=== PATIENT | female | born 1990 | race Caucasian/White ===

== ENCOUNTER 2017-06-30 01:47 | Emergency (ER) | payer SELFPAY ==
--- NOTE | 2017-06-30 01:51 | EDPHY ---
H & P HPI/ROS: HPI CHIEF COMPLAINT: Nausea, vomiting, abdominal pain, anxiety attack HISTORY OF PRESENT ILLNESS: This patient is a 26-year-old female, she has significant past medical history for anxiety and panic attacks, asthma, PTSD and chronic abdominal pain. She presents emergency room at 2 o'clock in the morning with nausea vomiting diffuse abdominal cramping, hyperventilation and feeling very anxious. She states for the past 3 year she has had chronic abdominal pain it has been associated with her anxiety. She states tonight she has been unable to hold anything down her anxiety is increasing. She states for the past 24 hours she has been vomiting without able to hold down p.o.. Past Medical History: Acute anxiety, panic attack, asthma, PTSD, chronic abdominal pain, thyroid disease Past Surgical History: Cholecystectomy Social History: Denies daily use of drugs alcohol tobacco products. Family History: Noncontributory ROS REVIEW OF SYSTEMS: A comprehensive 10 point review of systems is otherwise negative aside from elements mentioned in the history of present illness. Exam Constitutional anxious, tearful, triage nursing summary reviewed, vital signs reviewed, awake/alert. Eyes normal conjunctivae and sclera, EOMI, PERRLA. HENT normal inspection, atraumatic, moist mucus membranes, no epistaxis, neck supple/ no meningismus, no raccoon eyes. Respiratory clear to auscultation bilaterally, normal breath sounds, no respiratory distress, no wheezing. Cardiovascular rate normal, regular rhythm, no murmur, no edema, distal pulses normal. Gastrointestinal soft, non-tender, no rebound, no guarding, normal bowel sounds, no distension, no pulsatile mass. Genitourinary no CVA tenderness. Musculoskeletal no midline vertebral tenderness, full range of motion, no calf swelling, no tenderness of extremities, no meningismus, good pulses, neurovascularly intact. Skin pink, warm, & dry, no rash, skin atraumatic. Neurologic awake, alert and oriented x 3, AAOx3, moves all 4 extremities equally, motor intact, sensory intact, CN II-XII intact, normal cerebellar, normal vision, normal speech. Psychiatric normal mood/affect. Heme/Lymph/Immune no lymphadenopathy. Differential Diagnosis: Includes but is not limited to in a particular order acute anxiety, panic attack, electrolyte disturbance, dehydration, urinary tract infection, abdominal migraine, bowel obstruction, perforated bowel Medical Decision Making: Plan for this patient IV establishment, IV fluid bolus , IV Zofran for nausea IV Ativan for acute anxiety check abdominal blood work in KUB. Reexamine. Re-evaluation: 0326AM: Re-examination at this time this patient is resting comfortably no acute distress. Abdomen is soft nontender. She feels better after IV fluids Zofran and Ativan. Blood work has been reviewed is unremarkable. KUB does not show abnormal bowel gas pattern or free air. Gallbladder clips present. IUD present. Stool in the rectosigmoid colon. 0329AM: Patient like to go home. Re-examination abdomen is soft nontender. She states she feels better after IV Zofran fluids and Ativan. She is requesting nausea medicine for home as well as short dose of Ativan. I will provide her with this. She understands return emergency room if she develops worsening abdominal pain fever vomiting. She p.o. challenge successfully here. 0451AM: Patient was also given a GI cocktail this made her feel much better. I have added a prescription for Zantac. She also received 1 mg p.o. Ativan here. She does feel better. Return precautions given. Source: Patient - Medical/Surgical History Hx Asthma: Yes Hx Chronic Respiratory Disease: No Hx Diabetes: No Hx Cardiac Disease: No Hx Renal Disease: No Hx Cirrhosis: No Hx Alcoholism: No Hx HIV/AIDS: No Hx Splenectomy or Spleen Trauma: No Other PMH: PTSD, asthma , pcos, Anxiety depression - Social History Smoking Status: Never smoked Constitutional: Initial Vital Signs Temperature (C) 36.8 C 06/30/17 01:52 Heart Rate 97 06/30/17 01:52 Respiratory Rate 16 06/30/17 01:52 Blood Pressure 132/101 H 06/30/17 01:52 O2 Sat (%) 98 06/30/17 01:52 O2 Delivery Mode Room Air Allergies/Adverse Reactions: acetaminophen [From Percocet] Allergy (Verified 05/27/16 17:25) amoxicillin [From Augmentin] Allergy (Verified 06/30/17 01:52) clavulanic acid [From Augmentin] Allergy (Verified 06/30/17 01:52) fentanyl Allergy (Verified 05/27/16 17:25) fluticasone [From Flovent Diskus] Allergy (Verified 06/30/17 01:52) oxycodone HCl [From Percocet] Allergy (Verified 05/27/16 17:25) promethazine HCl [From Phenergan] Allergy (Verified 05/27/16 17:25) salmeterol [From Advair Diskus] Allergy (Verified 06/30/17 01:52) tramadol Allergy (Verified 05/27/16 17:25) Home Medications: Medication Instructions Recorded Albuterol 06/30/17 LORazepam [Ativan] 1 mg PO DAILY #4 tablet 06/30/17 Ondansetron HCl [Zofran] 4 mg PO Q4-6PRN PRN #10 tablet 06/30/17 Ranitidine HCl [Zantac] 150 mg PO DAILY #30 tablet 06/30/17 Medical Decision Making - Data Points Laboratory Results: Laboratory Results 06/30/17 01:57 06/30/17 01:57 06/30/17 06/30/17 06/30/17 01:57 01:57 01:57 WBC 8.63 10^3/uL 10^3/uL (3.80-9.50) RBC 4.82 10^6/uL 10^6/uL (4.18-5.33) Hgb 15.5 g/dL g/dL (12.6-16.3) Hct 44.0 % % (38.0-47.0) MCV 91.3 fL fL (81.5-99.8) MCH 32.2 pg pg (27.9-34.1) MCHC 35.2 g/dL g/dL (32.4-36.7) RDW 12.2 % % (11.5-15.2) Plt Count 251 10^3/uL 10^3/uL (150-400) MPV 8.7 fL fL (8.7-11.7) Neut % (Auto) 48.3 % % (39.3-74.2) Lymph % (Auto) 44.7 % % (15.0-45.0) [place] % (Auto) 5.1 % % (4.5-13.0) Eos % (Auto) 1.0 % % (0.6-7.6) Baso % (Auto) 0.7 % % (0.3-1.7) Nucleat RBC Rel Count 0.0 % % (0.0-0.2) Absolute Neuts (auto) 4.16 10^3/uL 10^3/uL (1.70-6.50) Absolute Lymphs (auto) 3.86 10^3/uL H 10^3/uL (1.00-3.00) Absolute Monos (auto) 0.44 10^3/uL 10^3/uL (0.30-0.80) Absolute Eos (auto) 0.09 10^3/uL 10^3/uL (0.03-0.40) Absolute Basos (auto) 0.06 10^3/uL 10^3/uL (0.02-0.10) Absolute Nucleated RBC 0.00 10^3/uL 10^3/uL (0-0.01) Immature Gran % 0.2 % % (0.0-1.1) Immature Gran # 0.02 10^3/uL 10^3/uL (0.00-0.10) Sodium 140 mEq/L mEq/L (134-144) Potassium 3.7 mEq/L mEq/L (3.5-5.2) Chloride 101 mEq/L mEq/L (97-110) Carbon Dioxide 23 mEq/l mEq/l (22-31) Anion Gap 16 mEq/L mEq/L (8-16) BUN 16 mg/dL mg/dL (7-23) Creatinine 0.9 mg/dL mg/dL (0.6-1.0) Estimated GFR > 60 Glucose 75 mg/dL mg/dL (70-100) Calcium 10.5 mg/dL H mg/dL (8.5-10.4) Total Bilirubin 1.6 mg/dL H mg/dL (0.1-1.4) Conjugated Bilirubin 0.3 mg/dL mg/dL (0.0-0.5) Unconjugated Bilirubin 1.3 mg/dL H mg/dL (0.0-1.1) AST 24 IU/L IU/L (14-46) ALT 27 IU/L IU/L (9-52) Alkaline Phosphatase 40 IU/L IU/L (38-126) Total Protein 7.9 g/dL g/dL (6.3-8.2) Albumin 4.8 g/dL g/dL (3.5-5.0) Lipase 119.0 IU/L IU/L (23-300) Beta HCG, Qual NEGATIVE Medications Given: Discontinued Medications Al Hydroxide/Mg Hydroxide (Maalox Susp) 30 ml PO ONCE ONE Stop: 06/30/17 04:31 Last Admin: 06/30/17 04:13 Dose: 30 ml Hyoscyamine Sulfate (Levsin, Hyomax-Sl) 0.25 mg PO ONCE ONE Stop: 06/30/17 04:31 Last Admin: 06/30/17 04:12 Dose: 0.25 mg Sodium Chloride (Ns) 1,000 mls @ 0 mls/hr IV EDNOW ONE; Wide Open PRN Reason: Protocol Stop: 06/30/17 02:03 Last Admin: 06/30/17 02:09 Dose: 1,000 mls Lidocaine (Lidocaine 2% Viscous) 15 ml PO ONCE ONE Stop: 06/30/17 04:31 Last Admin: 06/30/17 04:13 Dose: 15 ml Lorazepam (Ativan Injection) 1 mg IVP EDNOW ONE Stop: 06/30/17 02:04 Last Admin: 06/30/17 02:09 Dose: 1 mg Lorazepam (Ativan) 1 mg PO EDNOW ONE Stop: 06/30/17 04:47 Last Admin: 06/30/17 04:49 Dose: 1 mg Ondansetron HCl (Zofran) 4 mg IVP EDNOW ONE Stop: 06/30/17 02:03 Last Admin: 06/30/17 02:09 Dose: 4 mg Departure - Departure Disposition: Home, Routine, Self-Care Clinical Impression: Anxiety Vomiting Qualifiers: Vomiting type: unspecified Vomiting Intractability: non-intractable Nausea presence: with nausea Qualified Code(s): R11.2 - Nausea with vomiting, unspecified Condition: Good Instructions: Acute Nausea and Vomiting (ED), Anxiety (ED) Additional Instructions: 1. [place] diet for the next 24-48 hours. 2. Return emergency room if develops worsening abdominal pain fever vomiting. Referrals: NONE *PRIMARY CARE P,. [Primary Care Provider] - As per Instructions Prescriptions: LORazepam [Ativan] 1 mg PO DAILY #4 tablet Ondansetron HCl [Zofran] 4 mg PO Q4-6PRN PRN #10 tablet PRN Reason: Nausea/Vomiting, Use 1st Ranitidine HCl [Zantac] 150 mg PO DAILY #30 tablet
[2017-06-30 01:57] VITALS: RESP 16; TEMP 98.2
[2017-06-30] MEDS ORDERED: NS 1,000 ML IV ONE (02:02)
[2017-06-30] MEDS ORDERED: ONDANSETRON 4 MG/2 ML VIAL IVP ONE (02:02)
[2017-06-30] MEDS ORDERED: LORazepam 2 MG/ML INJ IVP ONE (02:03)
[2017-06-30 02:11] LABS: % IMMATURE GRANULYOCYTES 0.2 % (0.0-1.1); ABSOLUTE IMMATURE GRANULOCYTES 0.02 10^3/uL (0.00-0.10); ADD DIFF? NO; ADD MORPH? NO; ADD SCAN? NO; ATYPICAL LYMPHOCYTE FLAG 0 (0-99); FRAGMENT RBC FLAG 0 (0-99); HEMOGLOBIN 15.5 g/dL (12.6-16.3); LEFT SHIFT FLG 0 (0-99); LIPEMIA HEMOLYSIS FLAG 90 (0-99); MEAN CELL HEMOGLOBIN 32.2 pg (27.9-34.1); MEAN CELL HEMOGLOBIN CONCENTR. 35.2 g/dL (32.4-36.7); MEAN CELL VOLUME 91.3 fL (81.5-99.8); MEAN PLATELET VOLUME 8.7 fL (8.7-11.7); PLATELET CLUMPS FLAG 0 (0-99); PLATELET COUNT 251 10^3/uL (150-400); RED BLOOD CELL COUNT 4.82 10^6/uL (4.18-5.33); RED CELL DISTRIBUTION WIDTH 12.2 % (11.5-15.2)
[2017-06-30 02:17] LABS: ALANINE AMINOTRANSFERASE 27 IU/L (9-52); ALBUMIN 4.8 g/dL (3.5-5.0); ALKALINE PHOSPHATASE 40 IU/L (38-126); ANION GAP 16 mEq/L (8-16); ASPARTATE AMINOTRANSFERASE 24 IU/L (14-46); BILIRUBIN,TOTAL 1.6 mg/dL (0.1-1.4); BILIRUBIN-CONJUGATED 0.3 mg/dL (0.0-0.5); BILIRUBIN-UNCONJUGATED 1.3 mg/dL (0.0-1.1); CALCIUM 10.5 mg/dL (8.5-10.4); CARBON DIOXIDE 23 mEq/l (22-31); CHLORIDE 101 mEq/L (97-110); CREATININE 0.9 mg/dL (0.6-1.0); GLOMERULAR FILTRATION RATE > 60; GLUCOSE 75 mg/dL (70-100); POTASSIUM 3.7 mEq/L (3.5-5.2); SODIUM 140 mEq/L (134-144); TOTAL PROTEIN 7.9 g/dL (6.3-8.2)
[2017-06-30] MEDS ORDERED: MBX SOLN 30 ML BOTTLE PO PRN (03:58)
[2017-06-30] MEDS ORDERED: LIDOCAINE 2% VISCOUS 15 ML UDCUP PO ONE (04:30)
[2017-06-30] MEDS ORDERED: MAG HYDROX/AL HYDROX/SIMETH 30 ML UDCUP PO ONE (04:30)
[2017-06-30] MEDS ORDERED: HYOSCYAMINE SULFATE 0.125 MG TAB PO ONE (04:30)
[2017-06-30] MEDS ORDERED: LORazepam 1 MG TAB PO ONE (04:46)
[2017-06-30 06:09] VITALS: BP 117/75; O2SAT 96
[2017-06-30 06:19] VITALS: PULSE 57
== END 2017-06-30 06:18 | disposition home or self-care (01) ==
DX: R11.2 Nausea with vomiting, unspecified (principal); F41.9 Anxiety disorder, unspecified; E86.9 Volume depletion, unspecified; J45.998 Other asthma; Z90.49 Acquired absence of other specified parts of digestive tract
CPT/HCPCS: 96374; J2060; J2405

== ENCOUNTER 2017-08-21 22:27 | Emergency (ER) | payer MEDICAID ==
[2017-08-21 22:38] VITALS: TEMP 98.1
[2017-08-21] MEDS ORDERED: NS 1,000 ML IV ONE (22:43)
[2017-08-21] MEDS ORDERED: LORazepam 2 MG/ML INJ IVP ONE (22:44)
--- NOTE | 2017-08-21 22:49 | EDPHY ---
H & P Stated Complaint: panic attack Time Seen by Provider: 08/21/17 22:45 HPI/ROS: HPI: This is a 26-year-old female who presents with Chief Complaint: Difficulty sleeping and having a panic attack Location: Quality: Panic attack Duration: This evening Signs and Symptoms: No headache, no neck stiffness, no abdominal pain, no suicidal ideation, no homicidal ideation, + nausea, no vomiting, no diarrhea Timing: Acute on chronic Severity: Moderate to severe Context: Patient complains of having difficulty sleeping for the last several nights; only sleeping a few minutes at a time. She reports that she has PTSD, anxiety and panic attacks, depression, chronic abdominal pain. She states that her triggers for PTSD her dates and memories. Yesterday was a did very difficult date for her, she is reluctant to tell me more information. She states that she has been trying to hold it together for the last day with breathing exercises, relaxation techniques but tonight when she went to bed she woke up screaming for 15 minutes and then drove herself to the emergency room as she knows that she needs medication calm herself down. She received Medicaid last month and has been trying to get in appointment with [facility] since that time. She currently is not on any psychiatric medications. She reports no family support and limited friends support. She has had a poor appetite but denies any abdominal pain. Seen in this ER for similar symptoms on June 30, 2017 with unremarkable workup at that time and resolution of symptoms with IV Ativan 1 mg. she denies suicidal ideation/homicidal ideation/ hallucinations. Modifying Factors: See above Comment: ROS: See HPI Constitutional: No fever, no chills, no weight loss Eyes: No blurred vision Respiratory: No shortness of breath, no cough Cardiovascular: No chest pain Gastrointestinal: + nausea, no vomiting no diarrhea Genitourinary: No dysuria Extremities: No myalgias Neurologic: No weakness, no numbness Skin: No rashes Hematologic: No bruising, no bleeding Past Medical History: Acute anxiety, panic attack, asthma, PTSD, chronic abdominal pain, thyroid disease Past Surgical History: Cholecystectomy Social History: Denies daily use of drugs alcohol tobacco products. Family History: Noncontributory CONSTITUTIONAL: Tearful, tidy appearance, mildly anxious, young adult female, awake and alert, no obvious distress HEENT: Atraumatic and normocephalic, PERRL, EOMI. Tympanic membranes clear. Oropharynx clear, no exudate and moist pink mucosa. Airway patent. No lymphadenopathy. No meningismus. Cardiovascular: Normal S1/S2, regular rate, regular rhythm, without murmur rub or gallop. PULMONARY/CHEST: Symmetrical and nontender. Clear to auscultation bilaterally. Good air movement. No accessory muscle usage. ABDOMEN: Soft, nondistended, nontender, no rebound, no guarding, no peritoneal signs, no masses or organomegaly. No CVAT. EXTREMITIES: 2/2 pulses, no deformities, no clubbing, no cyanosis or edema. NEUROLOGICAL: no focal neuro deficits. GCS 15. PSYCH: Good eye contact, no flight of ideas, logical thought process, relatively good insight and judgment. SKIN: Warm and dry, no erythema. no rash. Good capillary refill. Source: Patient Exam Limitations: No limitations - Personal History LMP (Females 10-55): 1-7 Days Ago Tetanus Vaccine Date: 2011 - Medical/Surgical History Hx Asthma: Yes Hx Chronic Respiratory Disease: No Hx Diabetes: No Hx Cardiac Disease: No Hx Renal Disease: No Hx Cirrhosis: No Hx Alcoholism: No Hx HIV/AIDS: No Hx Splenectomy or Spleen Trauma: No Other PMH: PTSD, asthma , pcos, Anxiety depression - Social History Smoking Status: Never smoked Constitutional: Initial Vital Signs Temperature (C) 36.7 C 08/21/17 22:35 Heart Rate 83 08/21/17 22:35 Respiratory Rate 20 08/21/17 22:35 Blood Pressure 128/90 H 08/21/17 22:35 O2 Sat (%) 98 08/21/17 22:35 O2 Delivery Mode Room Air Allergies/Adverse Reactions: acetaminophen [From Percocet] Allergy (Verified 08/21/17 22:35) amoxicillin [From Augmentin] Allergy (Verified 08/21/17 22:35) clavulanic acid [From Augmentin] Allergy (Verified 08/21/17 22:35) fentanyl Allergy (Verified 08/21/17 22:35) fluticasone [From Flovent Diskus] Allergy (Verified 08/21/17 22:35) oxycodone HCl [From Percocet] Allergy (Verified 08/21/17 22:35) promethazine HCl [From Phenergan] Allergy (Verified 08/21/17 22:35) salmeterol [From Advair Diskus] Allergy (Verified 08/21/17 22:35) sulfamethoxazole [From Septra] Allergy (Verified 08/21/17 22:35) tramadol Allergy (Verified 08/21/17 22:35) trimethoprim [From Septra] Allergy (Verified 08/21/17 22:35) Home Medications: Medication Instructions Recorded Albuterol 06/30/17 LORazepam [Ativan] 1 mg PO DAILY #4 tablet 06/30/17 Ondansetron HCl [Zofran] 4 mg PO Q4-6PRN PRN #10 tablet 06/30/17 Ranitidine HCl [Zantac] 150 mg PO DAILY #30 tablet 06/30/17 hydrOXYzine HCL [hydrOXYzine HCL 25 - 50 mg PO Q8 #12 tab 08/21/17 (RX)] Medical Decision Making ED Course/Re-evaluation: Given 1 L normal saline and IV Ativan 2 mg. 2342: Reassessed patient; denies suicidal ideation/homicidal ideation. Has had significant relief of anxiety and panic attack with medications administered. Case management is aware of patient is working with her for follow-up with Behavioral Health. Have given her Ativan prepack as well as a prescription for limited supply of hydroxyzine in the interim until she is seen by behavioral health. Differential Diagnosis: Differential including but not limited to anxiety and depression, hyperventilation syndrome, poor coping mechanisms. - Data Points Medications Given: Discontinued Medications Sodium Chloride (Ns) 1,000 mls @ 3,000 mls/hr IV EDNOW ONE Stop: 08/21/17 23:02 Last Admin: 08/21/17 22:58 Dose: 1,000 mls Lorazepam (Ativan Injection) 2 mg IVP EDNOW ONE Stop: 08/21/17 22:45 Last Admin: 08/21/17 22:59 Dose: 2 mg Departure - Departure Disposition: Home, Routine, Self-Care Clinical Impression: Panic attack Condition: Good Instructions: Post Traumatic Stress Disorder (ED), Anxiety (ED), Panic Attack ( ED) Referrals: Dia Dean, PAC [Primary Care Provider] - As per Instructions [facility] [Outside] - As per Instructions Prescriptions: hydrOXYzine HCL [hydrOXYzine HCL (RX)] 25 - 50 mg PO Q8 #12 tab
[2017-08-21] MEDS ORDERED: LORAZEPAM 1 MG PREPACK#4 BTL TAKEHOME ONE (23:41)
[2017-08-22] MEDS ORDERED: ONDANSETRON 4 MG/2 ML VIAL ONE (00:05)
[2017-08-22] MEDS ORDERED: ONDANSETRON 4 MG/2 ML VIAL IVP ONE (00:07)
[2017-08-22 00:13] VITALS: BP 124/80; PULSE 88; RESP 18; O2SAT 96
== END 2017-08-22 00:28 | disposition home or self-care (01) ==
DX: F41.0 Panic disorder [episodic paroxysmal anxiety] (principal); J45.909 Unspecified asthma, uncomplicated
CPT/HCPCS: 96374; J2060; J2405

== ENCOUNTER 2017-09-13 09:37 | Day surgery (SDC) | payer MEDICAID ==
[2017-09-13] MEDS ORDERED: LR 1,000 ML IV ONE (10:07)
--- NOTE | 2017-09-13 10:15 | PDGENHP ---
History & Physical Chief Complaint: Nausea vomiting, and epigastric pain Relevant Physical Exam: GEN: NAD. Cardiac: RRR. Lungs: CTA B. Abd: Soft, nt, nd
[2017-09-13 10:26] VITALS: PULSE 74
[2017-09-13] MEDS ORDERED: PROPOFOL/EMULSION 500 MG/50 ML BOTTLE IV ONE (11:29)
[2017-09-13] MEDS ORDERED: LIDOCAINE 2% 100 MG/5 ML SYR ONE (11:29)
--- NOTE | 2017-09-13 11:52 | PDANEPAE ---
ANE History of Present Illness Patient presents for EGD ANE Past Medical History - Cardiovascular History Hx Hypertension: No Hx Arrhythmias: No Hx Chest Pain: No Hx Coronary Artery / Peripheral Vascular Disease: No Hx CHF / Valvular Disease: No Hx Palpitations: No - Pulmonary History Hx COPD: No Hx Asthma/Reactive Airway Disease: Yes Hx Recent Upper Respiratory Infection: No Hx Oxygen in Use at Home: No Hx Sleep Apnea: No Sleep Apnea Screening Result - Last Documented: Negative Pulmonary History Comment: asthma- uses rescue inhaler- instructed pt to bring dos - Neurologic History Hx Cerebrovascular Accident: No Hx Seizures: No Hx Dementia: No - Endocrine History Hx Diabetes: No Endocrine History Comment: hypothyroidism - Renal History Hx Renal Disorders: No - Liver History Hx Hepatic Disorders: No - Neurological & Psychiatric Hx Hx Neurological and Psychiatric Disorders: Yes Neurological / Psychiatric History Comment: ptsd. major depressive disorder. major adjustment disorder. add. anxiety - Cancer History Hx Cancer: No - Congenital Disorder History Hx Congenital Disorders: No - GI History Hx Gastrointestinal Disorders: Yes Gastrointestinal History Comment: reflux - Other Health History Other Health History: wears glasses/ contacts. external yeast infection currently - Chronic Pain History Chronic Pain: Yes (chronic lower back pain and tear to right hip) - Surgical History Prior Surgeries: kelvin lira 2012. wisdom teeth removed ANE Review of Systems Review of Systems: - Exercise capacity METS (RN): 4 METS ANE Patient History - Allergies Allergies/Adverse Reactions: acetaminophen [From Percocet] Allergy (Verified 09/05/17 16:55) Hives amoxicillin [From Augmentin] Allergy (Verified 09/05/17 16:55) Rash clavulanic acid [From Augmentin] Allergy (Verified 09/05/17 16:55) Rash fentanyl Allergy (Verified 09/05/17 16:55) Loss of consciousness fluticasone [From Flovent Diskus] Allergy (Verified 09/05/17 16:55) Other-Enter Comments oxycodone HCl [From Percocet] Allergy (Verified 09/05/17 16:55) Hives promethazine HCl [From Phenergan] Allergy (Verified 09/05/17 16:55) Vomiting salmeterol [From Advair Diskus] Allergy (Verified 09/05/17 16:55) Vomiting sulfamethoxazole [From Septra] Allergy (Verified 09/05/17 16:55) Unknown tramadol Allergy (Verified 09/05/17 16:55) Vomiting trimethoprim [From ] Allergy (Verified 09/05/17 16:55) Unknown - Home Medications Home medications: home medication list seen and reviewed Home Medications: AMITRIPTYLINE HCL 09/05/17 [Last Taken 09/12/17] LORazepam [Ativan] 09/05/17 [Last Taken 09/13/17 08:30] Omeprazole 09/05/17 [Last Taken 09/12/17] Ondansetron Odt [Zofran Odt 4 mg (*)] 09/05/17 [Last Taken 09/13/17 08:30] - NPO status NPO Status: no food or drink >8 hours NPO Since - Liquids (Date): 09/12/17 NPO Since - Liquids (Time): 23:00 NPO Since - Solids (Date): 09/12/17 NPO Since - Solids (Time): 20:30 - Anes Hx Anes Hx: no prior problems - Smoking Hx Smoking Status: Former smoker - Family Anes Hx Family Hx Anesthesia Complications: family hx of fentanyl allergy, grandmother from fentanyl, mother almost from fentanyl ANE Labs/Vital Signs - Vital Signs Blood Pressure: 136/93 Heart Rate: 74 Respiratory Rate: 16 O2 Sat (%): 100 Height: 165.1 cm Weight: 51.71 kg ANE Physical Exam - Airway Neck exam: FROM Mallampati Score: Class 2 - Pulmonary Pulmonary: no respiratory distress - Cardiovascular Cardiovascular: regular rate and rhythym - ASA Status ASA Status: II ANE Anesthesia Plan Anesthesia Plan: GA with mask (rba discussed)
[2017-09-13] MEDS ORDERED: ONDANSETRON 4 MG/2 ML VIAL IVP PRN (12:04)
[2017-09-13] MEDS ORDERED: LR 500 ML IV PRN (12:04)
[2017-09-13] MEDS ORDERED: NALOXONE HCL 0.4 MG/ML INJ IVP PRN (12:04)
--- NOTE | 2017-09-13 12:08 | GIREPORT ---
[facility] Surgical Services - Endoscopy Department Patient Name: Emely Bean Procedure Date: 09/13/2017 11:30 AM Patient Type: Outpatient Attending MD/ ER Physician: Tyrell Auguste MD Procedure: Upper GI endoscopy Indications: Epigastric abdominal pain Providers: Tyrell Auguste MD Medicines: Monitored Anesthesia Care Complications: No immediate complications. Description of Procedure: After obtaining informed consent, the endoscope was passed under direct vision. Throughout the procedure, the patient's blood pressure, pulse, and oxygen saturations were monitored continuously. The Endoscope was intro duced through the mouth, and advanced to the second part of duodenum. The [facility] GI endoscopy was accomplished without difficulty. The patient tolerated th e procedure well. Findings: The examined esophagus was normal. The Z-line was regular and was found 38 cm from the incisors. The entire examined stomach was normal. Biopsies were taken with a cold forceps for histology. Verification of patient identification for the specimen was done by the physician and nurse using the patient's name a nd date. Estimated blood loss was minimal. The examined duodenum was normal. Biopsies were taken with a cold force ps for histology. Verification of patient identification for the specimen was done by the physician and nurse using the patient's name and date . Estimated blood loss was minimal. Estimated Blood Loss: Estimated blood loss: none. Post Op Diagnosis: - Normal esophagus. - Z-line regular, 38 cm from the incisors. - Normal stomach. Biopsied. - Normal examined duodenum. Biopsied. Recommendation: - Discharge patient to home (with escort). - Resume previous diet. - Continue present medications. - Your pathology results are available within 10 days. - Follow up in GI clinic as previously scheduled. - Thank you for allowing me to participate in the care of your patient. Attending Participation: I personally performed the entire procedure. Tyrell Auguste MD Tyrell Auguste MD 09/13/2017 12:07:40 PM This report has been signed electronicallyDaaraceli Auguste MD Number of Addenda: 0 Note Initiated On: 09/13/2017 11:30 AM [email or web address]
--- NOTE | 2017-09-13 12:31 | POSTANESTH ---
Post Anesthetic Evaluation Cardiovascular Status: Normal, Stable Respiratory Status: Normal, Stable Level of Consciousness/Mental Status: Can Participate in Eval Pain Control: Adequate, Prn Tx Ordered Nausea/Vomiting Control: Adequate, Prn Tx Ordered Complications Possibly Related to Anesthesia: None Noted
[2017-09-13 12:40] VITALS: TEMP 98.6
[2017-09-13 13:01] VITALS: O2SAT 98
[2017-09-13 13:43] VITALS: BP 133/92; RESP 16
== END 2017-09-13 12:31 | disposition home or self-care (01) ==
LOC: FSGY 09:37
PROVIDERS: ATTEND Internal Medicine Gastroenterology
PROC: 0DB68ZX Excision of Stomach, Via Natural or Artificial Opening Endoscopic, Diagnostic (ICD-10-PCS; principal; 2017-09-13 11:15)
PROC: 0DB98ZX Excision of Duodenum, Via Natural or Artificial Opening Endoscopic, Diagnostic (ICD-10-PCS; principal; 2017-09-13 11:15)
DX: R10.13 Epigastric pain (principal); R11.2 Nausea with vomiting, unspecified; E03.9 Hypothyroidism, unspecified; Z88.6 Allergy status to analgesic agent
CPT/HCPCS: J2001; J2704

== ENCOUNTER 2018-03-27 17:05 | Emergency (ER) | payer MEDICAID ==
--- NOTE | 2018-03-27 17:18 | EDPHY ---
H & P Stated Complaint: cycle vomit syndrome Time Seen by Provider: 03/27/18 17:17 HPI/ROS: HPI CHIEF COMPLAINT: Cyclic vomiting syndrome HISTORY OF PRESENT ILLNESS: Patient is a 27-year-old female she has a history cyclic vomiting syndrome she presents emergency room stating that her cyclic vomiting syndrome has come back over the past 24 hr. She states she was recently stressed at work and felt very anxious and started having vomiting so decided come the emergency room for evaluation. She arrives by ambulance after going to her primary care doctor's office but was unable to get IV fluids in the office to came here. She states she has had multiple episodes of vomiting. No diarrhea. Denies any blood. Denies chest pain or shortness of breath denies fever. She did receive IV Zofran by EMS around is feeling better. Denies abdominal pain. Past Medical History: History of panic attacks, anxiety, asthma, PTSD, chronic abdominal pain, thyroid disease Past Surgical History: Cholecystectomy Social History: Denies daily use of drugs alcohol tobacco. Family History: Noncontributory ROS REVIEW OF SYSTEMS: A comprehensive 10 point review of systems is otherwise negative aside from elements mentioned in the history of present illness. Exam Constitutional appears well nontoxic no acute distress, slightly anxious, triage nursing summary reviewed, vital signs reviewed, awake/alert. Eyes normal conjunctivae and sclera, EOMI, PERRLA. HENT normal inspection, atraumatic, moist mucus membranes, no epistaxis, neck supple/ no meningismus, no raccoon eyes. Respiratory clear to auscultation bilaterally, normal breath sounds, no respiratory distress, no wheezing. Cardiovascular rate normal, regular rhythm, no murmur, no edema, distal pulses normal. Gastrointestinal soft, non-tender, no rebound, no guarding, normal bowel sounds, no distension, no pulsatile mass. Genitourinary no CVA tenderness. Musculoskeletal no midline vertebral tenderness, full range of motion, no calf swelling, no tenderness of extremities, no meningismus, good pulses, neurovascularly intact. Skin pink, warm, & dry, no rash, skin atraumatic. Neurologic awake, alert and oriented x 3, AAOx3, moves all 4 extremities equally, motor intact, sensory intact, CN II-XII intact, normal cerebellar, normal vision, normal speech. Psychiatric normal mood/affect. Heme/Lymph/Immune no lymphadenopathy. Differential diagnosis includes but is not limited to and in no particular order : Cyclic vomiting syndrome, electrolyte abnormality, Bowel obstruction, appendicitis, gallbladder disease, diverticulitis, colitis, enteritis, perforated viscus, gastritis, GERD, esophagitis, urinary tract infection, pyelonephritis, kidney stones Medical Decision Making: Plan for this patient IV establishment IV fluid bolus , IV Benadryl and IV Zofran for nausea vomiting, check basic blood work and re- evaluate. Re-evaluation: 1803: I did re-evaluate her she is resting comfortably no acute distress and is feeling much better. She denies any ongoing nausea vomiting. Symptoms are well controlled she received IV fluids here. Her blood work is reassuring. She denies any abdominal pain chest pain or shortness of breath. She is requesting discharge home. Discussed return precautions with her. Additionally she understands return emergency room she develops worsening abdominal pain fever vomiting. Source: Patient, EMS - Personal History Tetanus Vaccine Date: 2011 - Medical/Surgical History Hx Asthma: Yes Hx Chronic Respiratory Disease: No Hx Diabetes: No Hx Cardiac Disease: No Hx Renal Disease: No Hx Cirrhosis: No Hx Alcoholism: No Hx HIV/AIDS: No Hx Splenectomy or Spleen Trauma: No Other PMH: PTSD, asthma , pcos, Anxiety depression - Social History Smoking Status: Former smoker Constitutional: Initial Vital Signs Temperature (C) 37.0 C 03/27/18 17:09 Heart Rate 97 03/27/18 17:09 Respiratory Rate 18 03/27/18 17:09 Blood Pressure 137/91 H 03/27/18 17:09 O2 Sat (%) 97 03/27/18 17:09 O2 Delivery Mode Room Air Allergies/Adverse Reactions: acetaminophen [From Percocet] Allergy (Verified 09/05/17 16:55) Hives amoxicillin [From Augmentin] Allergy (Verified 09/05/17 16:55) Rash clavulanic acid [From Augmentin] Allergy (Verified 09/05/17 16:55) Rash fentanyl Allergy (Verified 09/05/17 16:55) Loss of consciousness fluticasone [From Flovent Diskus] Allergy (Verified 09/05/17 16:55) Other-Enter Comments oxycodone HCl [From Percocet] Allergy (Verified 09/05/17 16:55) Hives promethazine HCl [From Phenergan] Allergy (Verified 10/16/17 16:55) Vomiting salmeterol [From Advair Diskus] Allergy (Verified 09/05/17 16:55) Vomiting sulfamethoxazole [From Septra] Allergy (Verified 09/05/17 16:55) Unknown tramadol Allergy (Verified 09/05/17 16:55) Vomiting trimethoprim [From Julra] Allergy (Verified 09/05/17 16:55) Unknown Home Medications: Medication Instructions Recorded AMITRIPTYLINE HCL 09/05/17 LORazepam [Ativan] 09/05/17 Omeprazole 09/05/17 Ondansetron Odt [Zofran Odt 4 mg 09/05/17 (*)] Medical Decision Making - Data Points Laboratory Results: Laboratory Results 03/27/18 17:06 03/27/18 17:06 03/27/18 03/27/18 03/27/18 17:06 17:06 17:06 WBC 9.56 10^3/uL H 10^3/uL (3.80-9.50) RBC 4.58 10^6/uL 10^6/uL (4.18-5.33) Hgb 14.3 g/dL g/dL (12.6-16.3) Hct 41.6 % % (38.0-47.0) MCV 90.8 fL fL (81.5-99.8) MCH 31.2 pg pg (27.9-34.1) MCHC 34.4 g/dL g/dL (32.4-36.7) RDW 12.2 % % (11.5-15.2) Plt Count 305 10^3/uL 10^3/uL (150-400) MPV 8.5 fL L fL (8.7-11.7) Neut % (Auto) 73.7 % % (39.3-74.2) Lymph % (Auto) 22.8 % % (15.0-45.0) [place] % (Auto) 2.7 % L % (4.5-13.0) Eos % (Auto) 0.1 % L % (0.6-7.6) Baso % (Auto) 0.3 % % (0.3-1.7) Nucleat RBC Rel Count 0.0 % % (0.0-0.2) Absolute Neuts (auto) 7.04 10^3/uL H 10^3/uL (1.70-6.50) Absolute Lymphs (auto) 2.18 10^3/uL 10^3/uL (1.00-3.00) Absolute Monos (auto) 0.26 10^3/uL L 10^3/uL (0.30-0.80) Absolute Eos (auto) 0.01 10^3/uL L 10^3/uL (0.03-0.40) Absolute Basos (auto) 0.03 10^3/uL 10^3/uL (0.02-0.10) Absolute Nucleated RBC 0.00 10^3/uL 10^3/uL (0-0.01) Immature Gran % 0.4 % % (0.0-1.1) Immature Gran # 0.04 10^3/uL 10^3/uL (0.00-0.10) PT 13.7 SEC SEC (12.0-15.0) INR 1.03 (0.83-1.16) APTT 23.1 SEC SEC (23.0-38.0) Sodium 138 mEq/L mEq/L (135-145) Potassium 4.0 mEq/L mEq/L (3.5-5.2) Chloride 99 mEq/L mEq/L (97-110) Carbon Dioxide 21 mEq/l L mEq/l (22-31) Anion Gap 18 mEq/L H mEq/L (8-16) BUN 21 mg/dL mg/dL (7-23) Creatinine 0.9 mg/dL mg/dL (0.6-1.0) Estimated GFR > 60 Glucose 73 mg/dL mg/dL (70-100) Calcium 9.2 mg/dL mg/dL (8.5-10.4) Total Bilirubin 1.0 mg/dL mg/dL (0.1-1.4) Conjugated Bilirubin 0.5 mg/dL mg/dL (0.0-0.5) Unconjugated Bilirubin 0.5 mg/dL mg/dL (0.0-1.1) AST 35 IU/L IU/L (14-46) ALT 32 IU/L IU/L (9-52) Alkaline Phosphatase 48 IU/L IU/L (38-126) Total Protein 7.5 g/dL g/dL (6.3-8.2) Albumin 4.6 g/dL g/dL (3.5-5.0) Lipase 136 IU/L IU/L (23-300) Medications Given: Discontinued Medications Diphenhydramine HCl (Benadryl Injection) 25 mg IVP EDNOW ONE Stop: 03/27/18 17:30 Last Admin: 03/27/18 17:33 Dose: 25 mg Haloperidol Lactate (Haldol Injection) 2.5 mg IVP EDNOW ONE Stop: 03/27/18 17:30 Last Admin: 03/27/18 17:30 Dose: Not Given Sodium Chloride (Ns) 1,000 mls @ 0 mls/hr IV EDNOW ONE; Wide Open PRN Reason: Protocol Stop: 03/27/18 17:28 Last Admin: 03/27/18 17:33 Dose: 1,000 mls Departure - Departure Disposition: Home, Routine, Self-Care Clinical Impression: Vomiting Qualifiers: Vomiting type: unspecified Vomiting Intractability: non-intractable Nausea presence: with nausea Qualified Code(s): R11.2 - Nausea with vomiting, unspecified Condition: Good Instructions: Cyclic Vomiting Syndrome (ED) Additional Instructions: 1. Return emergency room if develops worsening vomiting fever or pain. 2. Stay well-hydrated drink lots of fluids. Referrals: Patient,NotPresent [Unknown] - As per Instructions
[2018-03-27] MEDS ORDERED: NS 1,000 ML IV ONE (17:27)
[2018-03-27] MEDS ORDERED: HALOPERIDOL LACT 5 MG/ML INJ IVP ONE (17:29)
[2018-03-27 17:36] LABS: PLATELET COUNT 305 10^3/uL (150-400)
[2018-03-27 17:39] LABS: INR 1.03 (0.83-1.16); PROTIME(PATIENT) 13.7 SEC (12.0-15.0)
[2018-03-27] MEDS ORDERED: FAMOTIDINE 20 MG/2 ML SDV IVP ONE (18:16)
[2018-03-27 18:21] VITALS: BP 111/67
== END 2018-03-27 18:46 | disposition home or self-care (01) ==
LOC: EDUNIT#
DX: R11.2 Nausea with vomiting, unspecified (principal); E86.9 Volume depletion, unspecified; J45.909 Unspecified asthma, uncomplicated; Z87.891 Personal history of nicotine dependence
CPT/HCPCS: 96374; J1200

== ENCOUNTER 2018-08-13 09:20 | Emergency (ER) | payer MEDICAID ==
[2018-08-13] MEDS ORDERED: ONDANSETRON 4 MG/2 ML VIAL IVP ONE (09:35)
[2018-08-13] MEDS ORDERED: NS 1,000 ML IV ONE ×2 (09:35→09:41)
--- NOTE | 2018-08-13 09:35 | EDPHY ---
General - History Smoking Status: Former smoker Time Seen by Provider: 08/13/18 09:29 Narrative: CHIEF COMPLAINT: "Cyclical vomiting episode" HISTORY OF PRESENT ILLNESS: Patient presents to emergency depart by private vehicle with complaints of cyclical vomiting episode. She states that she became nauseated 3 days ago. She described as constant. Yesterday she began vomiting. This was with solid or liquid intake. It is not painful until the point that she "starts dry heaving and retching."No pain at rest. No fever. There is no blood in the emesis. No constipation, diarrhea or bloody stools. She reports a history of cyclical vomiting, diagnosed 1 year ago and reportedly related to her anxiety. She typically takes amitriptyline Ativan for this. However she was not able to tolerate her Ativan last night because of vomiting with the fluid intake. She has no trauma or injury. No pelvic or vaginal complaints. Last menstrual period was August 03. She reports no chance of . No other associated complaints or modifying factors. REVIEW OF SYSTEMS: 10 systems were reviewed and negative with the exception of the elements mentioned in the history of present illness. PCP: Dr. Dia Fernandez SPECIALISTS: None PAST MEDICAL HISTORY: Cyclical vomiting syndrome, anxiety, depression, PTSD, PCOS, asthma PAST SURGICAL HISTORY: [place] tooth extraction, cholecystectomy SOCIAL HISTORY: Nonsmoker. Occasional alcohol use. Previous daily marijuana use. FAMILY HISTORY: Noncontributory. EXAMINATION: General Appearance: Alert, no distress. Ambulatory. Well-appearing. Head: normocephalic, atraumatic Eyes: Pupils equal and round, no conjunctival pallor or injection ENT, Mouth: Mucous membranes dry. Airway is widely patent. No edema or erythema of the pharynx. Neck: Normal inspection, supple, non-tender Respiratory: Lungs are clear to auscultation Cardiovascular: Tachycardic rate at 104 beats per minute. Regular rhythm. No murmur Gastrointestinal: Abdomen is soft and nontender. No distention. No tympany. No rigidity. Bowel sounds are present all 4 quadrants. No guarding. No CVA tenderness. Back: non-tender, no bony abnormalities Neurological: A&O, nonfocal, normal gait Skin: Warm and dry, no rash. There is a red tattoo on the dorsum of the left 5th finger over the proximal phalanx. Extremities: Nontender, no pedal edema Psychiatric: Mood and affect normal DIFFERENTIAL DIAGNOSES: Including but not limited to cyclical vomiting syndrome, gastritis, pancreatitis , colitis, dehydration, acute kidney injury, esophagitis, reflux MDM: 9:35 a.m. Nausea vomiting x3 days with no abdominal pain. Abdominal exam is benign. Mucous membranes are slightly dry. She is awake alert. No acute distress. No active vomiting. We discussed IV placement for fluid resuscitation. We discussed the previous medications that work for her, they include Benadryl and Zofran IV. She is comfortable starting with this. I do not feel she warrants any imaging at this time. She is resting comfortably in no acute distress. 10:05 a.m. Patient re-evaluated. She just received her medication 15 min ago and is starting to feel much better. Continue IV fluid and re-evaluated. Laboratory studies pending 10:20 a.m. Electrolytes, renal function liver function tests are all within normal limits. Patient has received 1 L IV fluid. She is feeling as much but still nauseated. We discussed starting with ice chips shortly, advancing slowly as tolerated, and continue with IV fluid 11:50 a.m. Patient re-evaluated. She has tolerated ice chips and water without difficulty. Mildly nauseated but no vomiting. Abdominal exam remains benign. We discussed discharge home with multiple nausea medications. We discussed clear liquid diet today. Advancing brace slowly as tolerated. We discussed follow up with primary care physician for re-evaluation this week. We discussed ED precautions for return of vomiting, fever or any abdominal pain. She states that she is comfortable this plan and would like to go home. She is discharged home stable condition. SUPERVISION: Patient was evaluated and examined in conjunction with my secondary supervising physician as documented. We have both examined the patient. CONSULTATION: (Jeremy Jorgensen) Medical Decision Making: PHYSICIAN DOCUMENTATION: The patient was evaluated and managed by the Physician Delivery Truck Driver [employer] and myself. I have reviewed the chart and agree with the findings and plan of care as documented. In addition, I examined the patient myself at 940. History confirmed as nausea vomiting diarrhea identical to previous episodes. Physical findings as follows: Mucous membranes dry, abdomen no peritoneal signs. Plan to treat symptomatically, discharge if hydrated and symptoms are controlled. I am the secondary supervising physician. (David Barrios) - Objective Vital Signs: Initial Vital Signs Temperature (C) 98.4 F 08/13/18 09:24 Heart Rate 110 H 08/13/18 09:24 Respiratory Rate 18 08/13/18 09:24 Blood Pressure 112/90 H 08/13/18 09:24 O2 Sat (%) 96 08/13/18 09:24 O2 Delivery Mode Room Air Allergies/Adverse Reactions: acetaminophen [From Percocet] Allergy (Verified 08/13/18 09:22) Hives amoxicillin [From Augmentin] Allergy (Verified 08/13/18 09:22) Rash clavulanic acid [From Augmentin] Allergy (Verified 08/13/18 09:22) Rash fentanyl Allergy (Verified 08/13/18 09:22) Loss of consciousness fluticasone [From Flovent Diskus] Allergy (Verified 08/13/18 09:22) Other-Enter Comments oxycodone HCl [From Percocet] Allergy (Verified 08/13/18 09:22) Hives promethazine HCl [From Phenergan] Allergy (Verified 08/13/18 09:22) Vomiting salmeterol [From Advair Diskus] Allergy (Verified 08/13/18 09:22) Vomiting sulfamethoxazole [From Septra] Allergy (Verified 08/13/18 09:22) Unknown tramadol Allergy (Verified 08/13/18 09:22) Vomiting trimethoprim [From Septra] Allergy (Verified 08/13/18 09:22) Unknown Home Medications: Medication Instructions Recorded AMITRIPTYLINE HCL 09/05/17 LORazepam [Ativan] 09/05/17 Ondansetron Odt [Zofran Odt 4 mg 09/05/17 (*)] Metoclopramide [Reglan 10 mg tab 10 mg PO Q8 PRN #9 tab 08/13/18 (*)] Nexium 08/13/18 Ondansetron Odt [Zofran Odt 4 mg 4 mg PO Q6 PRN #12 tab 08/13/18 (*)] Laboratory Results: Laboratory Results 08/13/18 09:40 08/13/18 08/13/18 09:40 09:40 Sodium 140 mEq/L mEq/L (135-145) Potassium 3.7 mEq/L mEq/L (3.3-5.0) Chloride 103 mEq/L mEq/L (97-110) Carbon Dioxide 27 mEq/l mEq/l (22-31) Anion Gap 10 mEq/L mEq/L (8-16) BUN 14 mg/dL mg/dL (7-23) Creatinine 0.8 mg/dL mg/dL (0.6-1.0) Estimated GFR > 60 Glucose 90 mg/dL mg/dL (70-100) Calcium 9.7 mg/dL mg/dL (8.5-10.4) Total Bilirubin 0.9 mg/dL mg/dL (0.1-1.4) Conjugated Bilirubin 0.1 mg/dL mg/dL (0.0-0.5) Unconjugated Bilirubin 0.8 mg/dL mg/dL (0.0-1.1) AST 26 IU/L IU/L (14-46) ALT 30 IU/L IU/L (9-52) Alkaline Phosphatase 44 IU/L IU/L (38-126) Total Protein 7.3 g/dL g/dL (6.3-8.2) Albumin 4.5 g/dL g/dL (3.5-5.0) Lipase 92 IU/L IU/L (23-300) Beta HCG, Qual NEGATIVE Medications Given: Discontinued Medications Diphenhydramine HCl (Benadryl Injection) 25 mg IVP EDNOW ONE Stop: 08/13/18 09:37 Last Admin: 08/13/18 09:51 Dose: 25 mg Famotidine (Pepcid) 20 mg IVP EDNOW ONE Stop: 08/13/18 09:42 Last Admin: 08/13/18 09:52 Dose: 20 mg Sodium Chloride (Ns) 1,000 mls @ 0 mls/hr IV EDNOW ONE; Wide Open PRN Reason: Protocol Stop: 08/13/18 09:36 Last Admin: 08/13/18 09:52 Dose: 1,000 mls Sodium Chloride (Ns) 1,000 mls @ 0 mls/hr IV EDNOW ONE; Wide Open PRN Reason: Protocol Stop: 08/13/18 09:42 Last Admin: 08/13/18 09:52 Dose: 1,000 mls Ondansetron HCl (Zofran) 4 mg IVP EDNOW ONE Stop: 08/13/18 09:36 Last Admin: 08/13/18 09:52 Dose: 4 mg Departure - Departure Disposition: Home, Routine, Self-Care Clinical Impression: Cyclic vomiting syndrome Qualifiers: Vomiting Intractability: non-intractable Nausea presence: with nausea Qualified Code(s): G43.A0 - Cyclical vomiting, not intractable Acute gastritis Qualifiers: Gastritis type: unspecified gastritis Gastritis bleeding: without bleeding Qualified Code(s): K29.00 - Acute gastritis without bleeding Condition: Good Instructions: Gastritis (ED), Acute Nausea and Vomiting (ED) Additional Instructions: 1. Nausea medications as prescribed as needed 2. Clear liquid diet, advancing very slowly as tolerated 3. Contact primary care physician for outpatient follow-up this week 4. [id number] Mylanta as directed on the bottle as needed 5. ED precautions for intractable vomiting, fever or abdominal pain Referrals: Dia Dean PAC [Primary Care Provider] - As per Instructions Stand Alone Forms: Work Excuse Prescriptions: Metoclopramide [Reglan 10 mg tab (*)] 10 mg PO Q8 PRN #9 tab PRN Reason: Nausea/Vomiting, Use 2nd Ondansetron Odt [Zofran Odt 4 mg (*)] 4 mg PO Q6 PRN #12 tab PRN Reason: Nausea/Vomiting, Use 1st
[2018-08-13] MEDS ORDERED: FAMOTIDINE 20 MG/2 ML SDV IVP ONE (09:41)
[2018-08-13 12:04] VITALS: BP 131/91
== END 2018-08-13 12:02 | disposition home or self-care (01) ==
DX: G43.A0 Cyclical vomiting, in migraine, not intractable (principal); K29.00 Acute gastritis without bleeding; E86.9 Volume depletion, unspecified; F41.8 Other specified anxiety disorders; F43.10 Post-traumatic stress disorder, unspecified
CPT/HCPCS: 96374; J1200; J2405

== ENCOUNTER 2018-10-03 23:54 | Emergency (ER) | payer MEDICAID ==
--- NOTE | 2018-10-03 23:55 | EDPHY ---
H & P Stated Complaint: sore throat Time Seen by Provider: 10/04/18 00:12 HPI/ROS: HPI The patient presents with sore throat which she awoke with this morning. She had sensation that she needed to cough upon awakening and had a sore throat. When she did cough, there was a small amount of blood that was read that she coughed up. Throughout the day today she developed progressive throat soreness and difficulty swallowing. She has not had a fever. Then again she had a strange sensation in her throat and coughed a small amount of blood-tinged saliva. She has not had any coughing outside of this. She has not had any weight loss. She does have a history of recurrent strep pharyngitis requiring antibiotics in the past.. REVIEW OF SYSTEMS 10 systems were reviewed and negative with the exception of the elements mentioned in the history of present illness. PMHx: History of cyclic vomiting syndrome with several visits to our ED Soc Hx: Housed PHYSICAL General Appearance: Alert, no distress Eyes: Pupils equal and round no pallor or injection ENT, Mouth: Mucous membranes moist, posterior pharynx is erythematous and mildly edematous without any exudate, left-sided anterior cervical lymphadenopathy is present Respiratory: There are no retractions, lungs are clear to auscultation Cardiovascular: Regular rate and rhythm Gastrointestinal: Abdomen is soft and non-tender, no masses, bowel sounds normal Neurological: A&O, moves all extremities Skin: Warm and dry, no rashes Musculoskeletal: Neck is supple non tender Extremities: symmetrical, full range of motion Psychiatric: Patient is oriented X 3, there is no agitation Source: Patient Exam Limitations: No limitations - Personal History Tetanus Vaccine Date: 2011 - Medical/Surgical History Hx Asthma: Yes Hx Chronic Respiratory Disease: No Hx Diabetes: No Hx Cardiac Disease: No Hx Renal Disease: No Hx Cirrhosis: No Hx Alcoholism: No Hx HIV/AIDS: No Hx Splenectomy or Spleen Trauma: No Other PMH: PTSD, asthma , pcos, Anxiety depression - Social History Smoking Status: Former smoker Constitutional: Initial Vital Signs Temperature (C) 37.0 C 10/03/18 23:56 Heart Rate 87 10/03/18 23:56 Respiratory Rate 18 10/03/18 23:56 Blood Pressure 125/82 H 10/03/18 23:56 O2 Sat (%) 97 10/03/18 23:56 O2 Delivery Mode Room Air Allergies/Adverse Reactions: acetaminophen [From Percocet] Allergy (Verified 10/03/18 23:58) Hives amoxicillin [From Augmentin] Allergy (Verified 10/03/18 23:58) Rash clavulanic acid [From Augmentin] Allergy (Verified 10/03/18 23:58) Rash fentanyl Allergy (Verified 10/03/18 23:58) Loss of consciousness fluticasone [From Flovent Diskus] Allergy (Verified 10/03/18 23:58) Other-Enter Comments oxycodone HCl [From Percocet] Allergy (Verified 10/03/18 23:58) Hives promethazine HCl [From Phenergan] Allergy (Verified 10/03/18 23:58) Vomiting salmeterol [From Advair Diskus] Allergy (Verified 10/03/18 23:58) Vomiting sulfamethoxazole [From Septra] Allergy (Verified 10/03/18 23:58) Unknown tramadol Allergy (Verified 10/03/18 23:58) Vomiting trimethoprim [From Septra] Allergy (Verified 10/03/18 23:58) Unknown Home Medications: Medication Instructions Recorded AMITRIPTYLINE HCL 09/05/17 LORazepam [Ativan] 09/05/17 Ondansetron Odt [Zofran Odt 4 mg 09/05/17 (*)] Metoclopramide [Reglan 10 mg tab 10 mg PO Q8 PRN #9 tab 08/13/18 (*)] Nexium 08/13/18 Ondansetron Odt [Zofran Odt 4 mg 4 mg PO Q6 PRN #12 tab 08/13/18 (*)] Medical Decision Making Differential Diagnosis: 27-year-old female with history of recurrent strep pharyngitis presents with sore throat with some bleeding. She has not had any coughing, outside of when she coughs up blood which she has done twice in the setting of sensation of fluid in her throat. This seems to be quite minimal. On exam, her posterior pharynx is erythematous, without exudate, she does have anterior left-sided cervical lymphadenopathy. She does not have a fever. Differential diagnosis includes strep pharyngitis, viral pharyngitis, less likely pneumonia. Rapid strep is negative. I will still give a single dose of Decadron here. Return precautions were discussed. - Data Points Laboratory Results: 10/04/18 10/04/18 Unknown 00:24 Group A Strep Screen NEGATIVE (NEGATIVE) Group A Strep DNA Pending Medications Given: Discontinued Medications Dexamethasone (Decadron) 8 mg PO EDNOW ONE Stop: 10/04/18 01:35 Last Admin: 10/04/18 01:38 Dose: 8 mg Departure - Departure Disposition: Home, Routine, Self-Care Clinical Impression: Pharyngitis Condition: Good Instructions: Pharyngitis (ED) Referrals: Dia Dean, PAC [Primary Care Provider] - As per Instructions
[2018-10-04] MEDS ORDERED: DEXAMETHASONE 4 MG TAB PO ONE (01:34)
[2018-10-04 01:50] VITALS: BP 115/78
== END 2018-10-04 01:50 | disposition home or self-care (01) ==
DX: J02.9 Acute pharyngitis, unspecified (principal)

== ENCOUNTER 2019-02-21 15:04 | Emergency (ER) | payer MEDICAID ==
--- NOTE | 2019-02-21 15:17 | EDPHY ---
H & P Stated Complaint: Accidental kicked drawer, R foot 3rd/4th toe pain, denies hitting head/othe Time Seen by Provider: 02/21/19 15:16 - Personal History Current Tetanus/Diphtheria Vaccine: Yes Tetanus Vaccine Date: 2011 - Medical/Surgical History Hx Asthma: Yes Hx Chronic Respiratory Disease: No Hx Diabetes: No Hx Cardiac Disease: No Hx Renal Disease: No Hx Cirrhosis: No Hx Alcoholism: No Hx HIV/AIDS: No Hx Splenectomy or Spleen Trauma: No Other PMH: PTSD, asthma , pcos, Anxiety depression - Social History Smoking Status: Former smoker Constitutional: Initial Vital Signs Temperature (C) 37.0 C 02/21/19 15:11 Heart Rate 116 H 02/21/19 15:11 Respiratory Rate 18 02/21/19 15:11 Blood Pressure 141/109 H 02/21/19 15:11 O2 Sat (%) 97 02/21/19 15:11 O2 Delivery Mode Room Air Allergies/Adverse Reactions: acetaminophen [From Percocet] Allergy (Verified 02/21/19 15:11) Hives amoxicillin [From Augmentin] Allergy (Verified 02/21/19 15:11) Rash clavulanic acid [From Augmentin] Allergy (Verified 02/21/19 15:11) Rash fentanyl Allergy (Verified 02/21/19 15:11) Loss of consciousness fluticasone [From Flovent Diskus] Allergy (Verified 02/21/19 15:11) Other-Enter Comments oxycodone HCl [From Percocet] Allergy (Verified 02/21/19 15:11) Hives promethazine HCl [From Phenergan] Allergy (Verified 02/21/19 15:11) Vomiting salmeterol [From Advair Diskus] Allergy (Verified 02/21/19 15:11) Vomiting sulfamethoxazole [From Septra] Allergy (Verified 02/21/19 15:11) Unknown tramadol Allergy (Verified 02/21/19 15:11) Vomiting trimethoprim [From Septra] Allergy (Verified 02/21/19 15:11) Unknown Home Medications: Medication Instructions Recorded AMITRIPTYLINE HCL 09/05/17 LORazepam [Ativan] 09/05/17 Ondansetron Odt [Zofran Odt 4 mg 09/05/17 (*)] Metoclopramide [Reglan 10 mg tab 10 mg PO Q8 PRN #9 tab 08/13/18 (*)] Nexium 08/13/18 Ondansetron Odt [Zofran Odt 4 mg 4 mg PO Q6 PRN #12 tab 08/13/18 (*)] Ibuprofen [Motrin] 800 mg PO Q8 #20 tab 02/21/19 Ondansetron Odt [Zofran Odt 4 mg 4 mg PO Q4 PRN #10 tab 02/21/19 (RX)] Medical Decision Making - Diagnostics Imaging: I viewed and interpreted images myself ED Course/Re-evaluation: CHIEF COMPLAINT: Right toe injury HISTORY OF PRESENT ILLNESS: The patient is a 28 y/o female with a history of anxiety complaining of toe injuries after hitting her foot against a drawer today. The patient accidently hit the bed drawer with her right foot and immediately had pain in her 3rd and 4th digits. Due to the throbbing pain she also feels nauseated. She denies having acute ankle or top of foot pain. No fever, headache, body aches, lightheadedness, chest pain, heart palpitations, shortness of breath, cough, abdominal pain, urinary or bowel complaints, numbness, paresthesias. REVIEW OF SYSTEMS: A comprehensive 10 system review of systems is otherwise negative aside from elements mentioned in the history of present illness and medical decision making. PHYSICAL EXAM: HR, BP, O2 Sat, RR. Temp noted General Appearance: Alert, well hydrated, appropriate, and non-toxic appearing. Head: Atraumatic without scalp tenderness or obvious injury Eyes: Pupils equal, round, reactive to light and accommodation, EOMI, no trauma , no injection. Ears: Clear bilaterally, no perforation, normal landmarks Nose: Atraumatic, no rhinorrhea, clear. Throat: There is no erythema or exudates, no lesions, normal tonsils, mucus membranes moist. Neck: Supple, 2+ carotid upstroke, nontender, no lymphadenopathy. Respiratory: No retractions, no distress, no wheezes, and no accessory muscle use. Lungs are clear to auscultation bilaterally. Cardiovascular: Regular rate and rhythm, no murmurs, rubs, or gallops. Bilateral carotid, radial, dorsalis pedis, and posterior tibial pulses intact. Good capillary refill all extremities. Gastrointestinal: Abdomen is soft, nontender, non-distended, no masses, no rebound, no guarding, no peritoneal signs. Musculoskeletal: Tenderness over right middle and ring toe without ecchymosis or swelling. Otherwise normal active ROM of all extremities, atraumatic. Neurological: Alert, appropriate, and interactive. The patient has normal DTRs and non-focal cranial nerves, motor, sensory, and cerebellar exam. Skin: No rashes, good turgor, no nodules on palpation. Past medical history: Asthma , PCOS, anxiety, depression, PTSD Past surgical history: Denies Family history: Denies Social history: Lives in [place], single, employed DIAGNOSTICS/PROCEDURES/CRITICAL CARE TIME: Right foot x-ray: No acute findings. DIFFERENTIAL DIAGNOSIS: The differential diagnosis for the patient's foot injury included but was not limited to fracture, ligamentous injury, contusion, muscular strain. MEDICAL DECISION MAKING: The patient is a 28 y/o female with a history of anxiety complaining of toe injuries after hitting her foot against a drawer today. Due to this pain she is nauseated. On exam she has tenderness over right middle and ring toe without ecchymosis or swelling. Patient's exam is otherwise normal besides right toe injuries. Right foot x-ray ordered. 1548: I reviewed patient's foot x-ray which does not reveal any acute findings. She will be placed in a post-op shoe. 1550: Reassessed patient and discussed imaging findings. I have prescribed her Zofran and Motrin. I advised her to follow up with a tv production assistant. Return precautions provided; patient is comfortable with this plan. Departure - Departure Disposition: Home, Routine, Self-Care Clinical Impression: Contusion, foot Qualifiers: Encounter type: initial encounter Laterality: right Qualified Code(s): S90.31XA - Contusion of right foot, initial encounter Condition: Good Instructions: Arthralgia (ED) Additional Instructions: 1. Rest, ice, elevation. 2. Follow up with a tv production assistant within one week. 3. Return to the emergency department for worsening pain, swelling, numbness, weakness or other concerns. 4. Wear post-op shoe until reevaluation. 5. Take Zofran and Motrin as directed. Referrals: [facility],. [Clinic] - As per Instructions Randal Brady MD [Medical Doctor] - As per Instructions Jamie Dutta MD [Doctor of Podiatric Medicine] - As per Instructions Prescriptions: Ibuprofen [Motrin] 800 mg PO Q8 #20 tab Ondansetron Odt [Zofran Odt 4 mg (RX)] 4 mg PO Q4 PRN #10 tab PRN Reason: Nausea/Vomiting, Use 1st Report Scribed for: Alfa Borrero Report Scribed by: Esperanza Bonds Date of Report: 02/21/19 Time of Report: 15:20
[2019-02-21 16:05] VITALS: BP 141/109
== END 2019-02-21 16:03 | disposition home or self-care (01) ==
DX: S90.31XA Contusion of right foot, initial encounter (principal); F43.10 Post-traumatic stress disorder, unspecified; W22.8XXA Striking against or struck by other objects, initial encounter; Y92.003 Bedroom of unspecified non-institutional (private) residence as the place of occurrence of the external cause
CPT/HCPCS: L4386